=== PATIENT | female | born 1985 | race Caucasian/White ===

== ENCOUNTER 2021-02-24 09:00 | Observation (INO) | payer BC ==
[~2021-02-24] VITALS: Ht 154.9 cm; Wt 88.5 kg
[2021-02-24 09:42] LABS: CLARITY URINE CLEAR (CLEAR); COLOR URINE YELLOW (YELLOW); KETONES URINE NEGATIVE (NEGATIVE); LEUKOCYTE ESTERASE URINE NEGATIVE (NEGATIVE); NITRITE URINE NEGATIVE (NEGATIVE); OCCULT BLOOD URINE TRACE (NEGATIVE); PH URINE 7.5 (4.5-8.0); PROTEIN URINE NEGATIVE (NEGATIVE)
[2021-02-24] MEDS ORDERED: DEXT 5%/LACTATED RINGERS 1,000 ML IV SCH (09:45)
== END 2021-02-24 11:43 | disposition home or self-care (01) ==
LOC: 8 EST LDRP 09:00
PROVIDERS: ADMIT Obstetrics & Gynecology; ATTEND Obstetrics & Gynecology
DX: O26.892 Other specified pregnancy related conditions, second trimester (principal); R10.9 Unspecified abdominal pain; O62.9 Abnormality of forces of labor, unspecified; Z3A.26 26 weeks gestation of pregnancy
CPT/HCPCS: 59025; 76805; 81003; G0378; 96360; 99281; G0379

== ENCOUNTER 2022-11-08 23:33 | Emergency (ER) | payer BC ==
[~2022-11-08] VITALS: Ht 154.9 cm; Wt 84.0 kg
[2022-11-08 23:47] VITALS: TEMP 98; O2SAT 98
[2022-11-09] MEDS ORDERED: IBUPROFEN 600MG TABLET PO ONE (01:00)
[2022-11-09] MEDS ORDERED: BACITRACIN ZINC OINT UDPKT TOP ONE (01:00)
[2022-11-09] MEDS ORDERED: LIDOCAINE HCL/PF 1% 10 MG/ML 5ML VIAL INFIL ONE (01:00)
[2022-11-09 01:04] VITALS: BP 128/74; PULSE 70; RESP 14
[2022-11-09] MEDS ORDERED: BO1 TP (01:38)
[2022-11-09] MEDS ORDERED: IBUP-2029 MT (01:38)
== END 2022-11-09 02:07 | disposition home or self-care (01) ==
LOC: ER 23:33
DX: S81.012A Laceration without foreign body, left knee, initial encounter (principal); W26.8XXA Contact with other sharp object(s), not elsewhere classified, initial encounter; Y93.89 Activity, other specified; Y92.89 Other specified places as the place of occurrence of the external cause; Y99.8 Other external cause status
CPT/HCPCS: 12002; 99282; J3490; Z7610

== ENCOUNTER 2022-11-11 17:45 | Emergency (ER) | payer BC ==
[~2022-11-11] VITALS: Ht 157.5 cm; Wt 83.0 kg
[~2022-11-11 17:45] MED LIST: BO1 TP; IBUP-2029 MT
[2022-11-11 17:51] VITALS: BP 149/81; PULSE 87; RESP 20; TEMP 98.8; O2SAT 98
== END 2022-11-11 18:57 | disposition home or self-care (01) ==
LOC: ER 17:45
DX: Z48.02 Encounter for removal of sutures (principal); Z68.33 Body mass index [BMI] 33.0-33.9, adult
CPT/HCPCS: 99281